=== PATIENT | female | born 1980 | race Caucasian/White ===

== ENCOUNTER 2016-06-20 01:54 | Emergency (ER) | payer BC ==
[2016-06-20 02:17] VITALS: RESP 18
[2016-06-20] MEDS ORDERED: SODIUM CHLORIDE 0.9% 500 ML IV STA (02:34)
[2016-06-20] MEDS ORDERED: ONDANSETRON 4 MG/2 ML VIAL IVP STA (02:38)
--- NOTE | 2016-06-20 02:38 | ED ---
Abdominal Pain HPI - General Chief Complaint: Abdominal Pain Stated Complaint: back/abd pain Time Seen by Provider: 06/20/16 02:20 Source: patient, family, RN notes reviewed Mode of arrival: ambulatory Limitations: no limitations - History of Present Illness Initial Comments: This patient is a 36-year-old woman who presents with complaint of bilateral flank pain going toward her abdomen. The patient states that this reminds her of previous kidney stone that she had. She states pain came on approximately 2 hours ago. She states that she had been trying sleep at the time. She describes the pain as aching, constant, severe. She is not aware of any worsening or relieving factors. She states that the pain is been accompanied by nausea but no other symptoms. MD Complaint: abdominal pain Onset/Timin -: hour(s) Location: L flank, R flank Radiation: LLQ, RLQ Migration to: no migration Severity: severe Quality: aching Consistency: constant Improves With: nothing Worsens With: nothing Associated Symptoms: nausea - Related Data Previous Rx's Medication Instructions Recorded Dicyclomine [Bentyl] 20 mg PO QID #15 tablet 06/20/16 Ondansetron Odt [Zofran ODT] 4 mg PO Q8HR PRN #10 tab 06/20/16 Allergies Allergy/AdvReac Type Severity Reaction Status Date / Time No Known Allergies Allergy Verified 06/20/16 02:17 Review of Systems ROS Statement: Those systems with pertinent positive or pertinent negative responses have been documented in the HPI. ROS Other: All systems not noted in ROS Statement are negative. Constitutional: Reports: chills. Denies: fever Respiratory: Denies: cough, dyspnea, wheezes Cardiovascular: Denies: chest pain, palpitations, edema Gastrointestinal: Reports: as per HPI, abdominal pain, nausea. Denies: vomiting , diarrhea, constipation, melena, hematochezia Genitourinary: Denies: dysuria, hematuria Musculoskeletal: Denies: back pain Skin: Denies: rash Neurological: Denies: headache, weakness Past Medical History Additional Past Medical History / Comment(s): ovarian cysts, UTI History of Any Multi-Drug Resistant Organisms: None Reported Past Surgical History: Appendectomy, Bariatric Surgery, Section, Tubal Ligation Additional Past Surgical History / Comment(s): lap band, uterine ablation Past Psychological History: No Psychological Hx Reported Smoking Status: Current every day smoker Past Alcohol Use History: Rare Past Drug Use History: None Reported General Exam Limitations: no limitations General appearance: alert, in no apparent distress Head exam: Present: atraumatic, normocephalic, normal inspection Eye exam: Present: normal appearance. Absent: scleral icterus, conjunctival injection ENT exam: Present: normal oropharynx Respiratory exam: Present: normal lung sounds bilaterally. Absent: respiratory distress, wheezes, rales, rhonchi, stridor Cardiovascular Exam: Present: regular rate, normal rhythm, normal heart sounds. Absent: systolic murmur, diastolic murmur, rubs, gallop GI/Abdominal exam: Present: soft, tenderness, normal bowel sounds. Absent: distended, rebound, rigid, mass, pulsatile mass, hernia Extremities exam: Present: normal inspection, normal capillary refill. Absent: pedal edema, calf tenderness Back exam: Present: normal inspection, CVA tenderness (R), CVA tenderness (L) Neurological exam: Present: alert Skin exam: Present: warm, dry, intact, normal color. Absent: rash Course Vital Signs 06/20/16 02:14 Temperature 97 F L Pulse Rate 99 Respiratory 18 Rate Blood Pressure 119/87 O2 Sat by Pulse 99 Oximetry Medical Decision Making - Lab Data Result diagrams: 06/20/16 02:49 06/20/16 02:49 Lab Results 06/20/16 06/20/16 Range/Units 02:49 02:49 WBC 11.9 H (3.8-10.6) k/uL RBC 4.84 (3.80-5.40) m/uL Hgb 15.0 (11.4-16.0) gm/dL Hct 44.1 (34.0-46.0) % MCV 91.3 (80.0-100.0) fL MCH 31.1 (25.0-35.0) pg MCHC 34.1 (31.0-37.0) g/dL RDW 12.4 (11.5-15.5) % Plt Count 276 (150-450) k/uL Neutrophils % 86 % Lymphocytes % 7 % Monocytes % 4 % Eosinophils % 2 % Basophils % 0 % Neutrophils # 10.2 H (1.3-7.7) k/uL Lymphocytes # 0.8 L (1.0-4.8) k/uL Monocytes # 0.5 (0-1.0) k/uL Eosinophils # 0.3 (0-0.7) k/uL Basophils # 0.0 (0-0.2) k/uL Sodium 143 (137-145) mmol/L Potassium 4.1 (3.5-5.1) mmol/L Chloride 106 (98-107) mmol/L Carbon Dioxide 27 (22-30) mmol/L Anion Gap 10 mmol/L BUN 8 (7-17) mg/dL Creatinine 0.70 (0.52-1.04) mg/dL Est GFR (MDRD) Af Amer >60 (>60 ml/min/1.73 sqM) Est GFR (MDRD) Non-Af >60 (>60 ml/min/1.73 sqM) Glucose 105 H (74-99) mg/dL Calcium 9.2 (8.4-10.2) mg/dL Total Bilirubin 0.5 (0.2-1.3) mg/dL AST 19 (14-36) U/L ALT 28 (9-52) U/L Alkaline Phosphatase 40 (38-126) U/L Total Protein 6.7 (6.3-8.2) g/dL Albumin 4.0 (3.5-5.0) g/dL Amylase 67 (30-110) U/L Lipase 120 (23-300) U/L Disposition Clinical Impression: Abdominal pain Disposition: HOME SELF-CARE Condition: Good Instructions: Abdominal Pain (ED) Prescriptions: Dicyclomine [Bentyl] 20 mg PO QID #15 tablet Ondansetron Odt [Zofran ODT] 4 mg PO Q8HR PRN #10 tab PRN Reason: Nausea Referrals: Kade Vicente MD [Primary Care Provider] - 1-2 days
[2016-06-20] MEDS: MORPHINE SULFATE 4 MG/ML SYRINGE IV STA ×2 (02:54→05:02)
[2016-06-20 03:05] LABS: Basophils % (A) 0 %; CH 31.4; CHCM 34.5; Eosinophils # (A) 0.3 k/uL (0-0.7); Eosinophils % (A) 2 %; HCT 44.1 % (34.0-46.0); HDW 2.64; Luc # (Auto) 0.06; Luc % (Auto) 1; Lymphocytes # (A) 0.8 k/uL (1.0-4.8); Lymphocytes % (A) 7 %; MCH 31.1 pg (25.0-35.0); MCHC 34.1 g/dL (31.0-37.0); MCV 91.3 fL (80.0-100.0); Mean Platelet Volume 6.6; Monocytes # (A) 0.5 k/uL (0-1.0); Monocytes % (A) 4 %; Neutrophils # (A) 10.2 k/uL (1.3-7.7); Neutrophils % (A) 86 %; RBC 4.84 m/uL (3.80-5.40); RDW 12.4 % (11.5-15.5); WBC 11.9 k/uL (3.8-10.6); WBC (Perox) 12.46
[2016-06-20 03:22] LABS: ALT 28 U/L (9-52); AST 19 U/L (14-36); Alkaline Phosphatase 40 U/L (38-126); Amylase 67 U/L (30-110); Anion Gap 10 mmol/L; Blood Urea Nitrogen 8 mg/dL (7-17); Calcium 9.2 mg/dL (8.4-10.2); Carbon Dioxide 27 mmol/L (22-30); Chloride 106 mmol/L (98-107); Glucose 105 mg/dL (74-99); Non-African American GFR(MDRD) >60 (>60 ml/min/1.73 sqM); Potassium 4.1 mmol/L (3.5-5.1); Sodium 143 mmol/L (137-145); Total Bilirubin 0.5 mg/dL (0.2-1.3); Total Protein 6.7 g/dL (6.3-8.2)
--- NOTE | 2016-06-20 03:49 | CT ---
EXAMINATION TYPE: CT abdomen pelvis wo con DATE OF EXAM: 06/20/2016 3:11 AM COMPARISON: 12/20/2015 HISTORY: Bilateral flank pain, Nausea, hx: appendectomy, lap band CT DLP: 226.70 mGycm Automated exposure control for dose reduction was used. TECHNIQUE: Helical acquisition of images was performed from the lung bases through the pelvis. FINDINGS: LUNG BASES: No significant abnormality is appreciated. LIVER/GB: No significant abnormality is appreciated. PANCREAS: No significant abnormality is seen. SPLEEN: No significant abnormality is seen. ADRENALS: No significant abnormality is seen. KIDNEYS: There is 3 mm nonobstructing stone in the upper pole area of left kidney. There is no hydron ephrosis bilaterally. RETROPERITONEAL ADENOPATHY: None visualized REPRODUCTIVE ORGANS: No significant abnormality is seen URINARY BLADDER: No significant abnormality is seen. PELVIC ADENOPATHY: None visualized. OSSEOUS STRUCTURES: No significant abnormality is seen. BOWEL: LAP-BAND surgery changes are noted in the stomach. The lap band port is noted in the left upp er abdomen subcutaneous area. The lap band appears in good position with oblique orientation. There is marked food and fluid disten tion of stomach. There is moderate fluid and gas distention of small bowel loops and large bowel loops with mild ileus or enteritis changes. The appendix is not well visualized. Appendix is probably surgically absent with surgical clips in pl andree. OTHER: There is suggestion of mild diffuse edema or anasarca of the abdomen and pelvic wall. IMPRESSION: 1. THERE IS FLUID AND AIR DISTENTION OF STOMACH SMALL AND LARGE BOWEL LOOPS WITH POSSIBLE GASTROENTER ITIS CHANGES. 2. LAP BAND PROCEDURE CHANGES ARE NOTED. THERE IS MARKED FLUID AND FOOD DISTENTION OF STOMACH.
[2016-06-20] MEDS ORDERED: MORPHINE SULFATE 4 MG/ML SYRINGE IV STA (04:52)
[2016-06-20 05:13] VITALS: BP 126/72; PULSE 78; TEMP 97.8
== END 2016-06-20 05:13 | disposition home or self-care (01) ==
LOC: EC 01:54
DX: R10.32 Left lower quadrant pain (principal); R10.31 Right lower quadrant pain; F17.200 Nicotine dependence, unspecified, uncomplicated; Z98.890 Other specified postprocedural states; Z98.84 Bariatric surgery status
CPT/HCPCS: 99284; 96374; 96375; 96361; 36415; 80053; 82150; 83690; 85025; 74176; J2270; J2405; 74020; 81001; 83605; 87077; 87086; 87186; 96365

== ENCOUNTER 2016-06-20 16:21 | Emergency (ER) | payer BC, OTHER ==
[2016-06-20 16:50] VITALS: TEMP 98
[2016-06-20] MEDS ORDERED: KETOROLAC 30 MG/ML 1 ML VIAL IVP STA (19:14)
[2016-06-20] MEDS ORDERED: PANTOPRAZOLE 40 MG/10 ML VIAL IVP STA (19:14)
[2016-06-20] MEDS ORDERED: SODIUM CHLORIDE 0.9% 1,000 ML IV STA (19:14)
[2016-06-20] MEDS ORDERED: METOCLOPRAMIDE 5 MG/ML 2 ML VIAL IVP STA (19:14)
--- NOTE | 2016-06-20 19:20 | ED ---
General Adult HPI - General Chief complaint: Abdominal Pain Stated complaint: BACK AND ABDOMINAL PAIN Time Seen by Provider: 06/20/16 18:45 Source: patient, family, RN notes reviewed, old records reviewed Mode of arrival: wheelchair Limitations: no limitations - History of Present Illness Initial comments: Chief complaint history of present illness a 36-year-old female who was here last night with a similar complaint of low back pain and abdominal discomfort. The patient had a CAT scan done last night without contrast for the most part did not show anything particular other than fluid and air distention of the stomach, small and large bowel loops with possible gastroenteritis changes. The patient has had a lap band and LAP-BAND procedure changes were noted. There is marked fluid in food distention of the stomach. Patient reports she's had dry heaves yesterday nausea today loose stool yesterday and today. - Related Data Previous Rx's Medication Instructions Recorded Dicyclomine [Bentyl] 20 mg PO QID #15 tablet 06/20/16 Hydrocodone/Acetaminophen [[place] 1 each PO Q6HR PRN #10 tab 06/20/16 5-325] Levofloxacin [Levaquin] 500 mg PO DAILY #6 tab 06/20/16 Ondansetron Odt [Zofran ODT] 4 mg PO Q8HR PRN #10 tab 06/20/16 Phenazopyridine [Pyridium] 200 mg PO TID #6 tablet 06/20/16 Allergies Allergy/AdvReac Type Severity Reaction Status Date / Time No Known Allergies Allergy Verified 06/20/16 18:48 Review of Systems ROS Statement: Those systems with pertinent positive or pertinent negative responses have been documented in the HPI. Review of systems patient's denying any visual acuity or headache no chest pain or shortness of breath. She has low back discomfort radiates around both sides the mid abdomen. Dry heaves loose stool. All systems were reviewed past medical problems kidney stones, ovarian cyst with frequent urinary tract infections. Patient surgeries appendectomy, bariatric surgery, , tubal ligation, uterine ablation. Family history no cancers patient does smoke strongly encouraged stop drink alcohol socially ROS Other: All systems not noted in ROS Statement are negative. Past Medical History Additional Past Medical History / Comment(s): ovarian cysts, UTI History of Any Multi-Drug Resistant Organisms: None Reported Past Surgical History: Appendectomy, Bariatric Surgery, Section, Tubal Ligation Additional Past Surgical History / Comment(s): lap band, uterine ablation Past Psychological History: No Psychological Hx Reported Smoking Status: Current every day smoker Past Alcohol Use History: Rare Past Drug Use History: None Reported General Exam - General Exam Comments Initial Comments: General: The patient is awake and alert, complaining of discomfort since 2 PM yesterday were started rather abruptly. Patient does have history kidney stones but no evidence of stones are noted on yesterday's CAT scan which was done without IV oral contrast. Vital signs show temperature 98.0 pulse 22 story rate 18 pulse ox 99% room air blood pressure 118/84 Eye: Pupils are equal, r , extra-ocular movements are intact; there is normal conjunctiva bilaterally. No signs of icterus. Ears, nose, mouth and throat: There are moist mucous membranes Neck: The neck is supple, Cardiovascular: There is a regular rate and rhythm. No murmur, rub or gallop is appreciated. Respiratory: Lungs are clear to auscultation, respirations are non-labored, breath sounds are equal. No wheezes, stridor, rales, or rhonchi. Gastrointestinal: Soft, non-distended, non-tender abdomen without masses or organomegaly noted. Mid abdominal discomfort across the mid abdomen .There is no rebound or guarding present. Complains of bilateral CVA tenderness. Bowel sounds are unremarkable. Back: Mid low back pain radiates around both sides. Musculoskeletal: Normal ROM, no tenderness, Neurological: CN II-XII intact, There are no obvious motor or sensory deficits. Coordination appears grossly intact. Speech is normal. Skin: Skin is warm and dry and no rashes or lesions are noted. Limitations: no limitations Course Vital Signs 06/20/16 16:47 Temperature 98.0 F Pulse Rate 92 Respiratory 18 Rate Blood Pressure 118/84 O2 Sat by Pulse 99 Oximetry Medical Decision Making - Medical Decision Making Medical decision making patient's white count 6.2 hemoglobin 13.8 hematocrit 41 , potassium 3.9 BUN 6 creatinine 0.57 GFR greater than 60. Glucose 97. Nitrite positive. Amylase lipase normal. 23 reds in the urine, 2 whites. The patient does not have any menstrual cycles because of uterine ablation. X-ray of the abdomen was done and reviewed by radiologist his impression is there is no sign of intestinal obstruction or pneumoperitoneum. Fecal pattern is normal. Bariatric surgery is noted. There are clips from tubal ligation. Lung bases are clear. There are no pathologic calcifications over the kidneys. Fecal pattern is normal. Impression nonacute abdomen. No change. As read by Dr. Ko Patient received her first dose of Levaquin IV in the emergency room. She has not have fever white count or chills. She'll be sent home on Levaquin 500 daily for the next 6 days for total seven-day treatment. Advised to follow-up with family physician and get her urine rechecked several days after she finishes antibiotics to make sure infections gone. She did return emergency room with any difficulty. In the meanwhile the patient be placed on Pyridium which will turn her urine orange. And a few pain pills. - Lab Data Result diagrams: 06/20/16 19:03 06/20/16 19:03 Lab Results 06/20/16 06/20/16 06/20/16 Range/Units 19:03 19:03 19:03 WBC 6.2 (3.8-10.6) k/uL RBC 4.49 (3.80-5.40) m/uL Hgb 13.8 (11.4-16.0) gm/dL Hct 41.0 (34.0-46.0) % MCV 91.4 (80.0-100.0) fL MCH 30.7 (25.0-35.0) pg MCHC 33.6 (31.0-37.0) g/dL RDW 12.4 (11.5-15.5) % Plt Count 250 (150-450) k/uL Neutrophils % 85 % Lymphocytes % 9 % Monocytes % 4 % Eosinophils % 2 % Basophils % 0 % Neutrophils # 5.2 (1.3-7.7) k/uL Lymphocytes # 0.6 L (1.0-4.8) k/uL Monocytes # 0.2 (0-1.0) k/uL Eosinophils # 0.1 (0-0.7) k/uL Basophils # 0.0 (0-0.2) k/uL Sodium 136 L (137-145) mmol/L Potassium 3.9 (3.5-5.1) mmol/L Chloride 105 (98-107) mmol/L Carbon Dioxide 22 (22-30) mmol/L Anion Gap 9 mmol/L BUN 6 L (7-17) mg/dL Creatinine 0.57 (0.52-1.04) mg/dL Est GFR (MDRD) Af Amer >60 (>60 ml/min/1.73 sqM) Est GFR (MDRD) Non-Af >60 (>60 ml/min/1.73 sqM) Glucose 97 (74-99) mg/dL Plasma Lactic Acid Charlie (0.7-2.0) mmol/L Calcium 8.9 (8.4-10.2) mg/dL Total Bilirubin 0.5 (0.2-1.3) mg/dL AST 16 (14-36) U/L ALT 28 (9-52) U/L Alkaline Phosphatase 38 (38-126) U/L Total Protein 6.3 (6.3-8.2) g/dL Albumin 3.7 (3.5-5.0) g/dL Amylase 63 (30-110) U/L Lipase 130 (23-300) U/L Urine Color Yellow Urine Appearance Turbid H (Clear) Urine pH 7.5 (5.0-8.0) Ur Specific Ira 1.021 (1.001-1.035) Urine Protein 1+ H (Negative) Urine Glucose (UA) Negative (Negative) Urine Ketones Negative (Negative) Urine Blood Negative (Negative) Urine Nitrate Positive H (Negative) Urine Bilirubin Negative (Negative) Urine Urobilinogen 2.0 (<2.0) mg/dL Ur Leukocyte Esterase Large H (Negative) Urine RBC 23 H (0-5) /hpf Urine WBC 92 H (0-5) /hpf Urine WBC Clumps Few H (None) /hpf Ur Squamous Epith Cells 115 H (0-4) /hpf Urine Bacteria Many H (None) /hpf Urine Mucus Few H (None) /hpf Urine Yeast (Budding) Occasional H (None) /hpf 06/20/16 Range/Units 19:30 WBC (3.8-10.6) k/uL RBC (3.80-5.40) m/uL Hgb (11.4-16.0) gm/dL Hct (34.0-46.0) % MCV (80.0-100.0) fL MCH (25.0-35.0) pg MCHC (31.0-37.0) g/dL RDW (11.5-15.5) % Plt Count (150-450) k/uL Neutrophils % % Lymphocytes % % Monocytes % % Eosinophils % % Basophils % % Neutrophils # (1.3-7.7) k/uL Lymphocytes # (1.0-4.8) k/uL Monocytes # (0-1.0) k/uL Eosinophils # (0-0.7) k/uL Basophils # (0-0.2) k/uL Sodium (137-145) mmol/L Potassium (3.5-5.1) mmol/L Chloride (98-107) mmol/L Carbon Dioxide (22-30) mmol/L Anion Gap mmol/L BUN (7-17) mg/dL Creatinine (0.52-1.04) mg/dL Est GFR (MDRD) Af Amer (>60 ml/min/1.73 sqM) Est GFR (MDRD) Non-Af (>60 ml/min/1.73 sqM) Glucose (74-99) mg/dL Plasma Lactic Acid Charlie 0.9 (0.7-2.0) mmol/L Calcium (8.4-10.2) mg/dL Total Bilirubin (0.2-1.3) mg/dL AST (14-36) U/L ALT (9-52) U/L Alkaline Phosphatase (38-126) U/L Total Protein (6.3-8.2) g/dL Albumin (3.5-5.0) g/dL Amylase (30-110) U/L Lipase (23-300) U/L Urine Color Urine Appearance (Clear) Urine pH (5.0-8.0) Ur Specific Ira (1.001-1.035) Urine Protein (Negative) Urine Glucose (UA) (Negative) Urine Ketones (Negative) Urine Blood (Negative) Urine Nitrate (Negative) Urine Bilirubin (Negative) Urine Urobilinogen (<2.0) mg/dL Ur Leukocyte Esterase (Negative) Urine RBC (0-5) /hpf Urine WBC (0-5) /hpf Urine WBC Clumps (None) /hpf Ur Squamous Epith Cells (0-4) /hpf Urine Bacteria (None) /hpf Urine Mucus (None) /hpf Urine Yeast (Budding) (None) /hpf Disposition Clinical Impression: Urinary tract infection Disposition: HOME SELF-CARE Condition: Fair Instructions: Urinary Tract Infection in Women (ED) Additional Instructions: Increase fluids. Take pain medication as directed Pyridium will turn the urine orange. Get urine rechecked several days after he finished antibiotics. Follow -up family physician return emergency room as needed Prescriptions: Hydrocodone/Acetaminophen [[place] 5-325] 1 each PO Q6HR PRN #10 tab PRN Reason: Pain Levofloxacin [Levaquin] 500 mg PO DAILY #6 tab Phenazopyridine [Pyridium] 200 mg PO TID #6 tablet Time of Disposition: 21:15
[2016-06-20 19:34] LABS: Basophils % (A) 0 %; CH 31.4; CHCM 34.5; Eosinophils # (A) 0.1 k/uL (0-0.7); Eosinophils % (A) 2 %; HDW 2.67; HGB 13.8 gm/dL (11.4-16.0); Luc # (Auto) 0.03; Luc % (Auto) 1; Lymphocytes # (A) 0.6 k/uL (1.0-4.8); Lymphocytes % (A) 9 %; MCH 30.7 pg (25.0-35.0); MCHC 33.6 g/dL (31.0-37.0); MCV 91.4 fL (80.0-100.0); Mean Platelet Volume 6.7; Monocytes # (A) 0.2 k/uL (0-1.0); Monocytes % (A) 4 %; Neutrophils # (A) 5.2 k/uL (1.3-7.7); Neutrophils % (A) 85 %; RBC 4.49 m/uL (3.80-5.40); RDW 12.4 % (11.5-15.5); WBC 6.2 k/uL (3.8-10.6); WBC (Perox) 6.45
[2016-06-20 19:38] LABS: Appearance,Urine Turbid (Clear); Bacteria,Urine Many /hpf; Bilirubin,Urine Negative (Negative); Glucose,Urine (UA) Negative (Negative); Ketones,Urine Negative (Negative); Leukocyte Esterase,Urine Large (Negative); Mucus,Urine Few /hpf; Nitrite,Urine Positive (Negative); PH, Urine 7.5 (5.0-8.0); Particle Count 159104; Protein,Urine 1+ (Negative); RBC,Urine 23 /hpf (0-5); Specific Gravity,Urine 1.021 (1.001-1.035); Squamous Epithelial Cell,Urine 115 /hpf (0-4); UA Billing (MACRO vs. MICRO) MICRO; WBC,Urine 92 /hpf (0-5)
[2016-06-20 19:42] LABS: ALT 28 U/L (9-52); AST 16 U/L (14-36); Alkaline Phosphatase 38 U/L (38-126); Amylase 63 U/L (30-110); Anion Gap 9 mmol/L; Blood Urea Nitrogen 6 mg/dL (7-17); Calcium 8.9 mg/dL (8.4-10.2); Carbon Dioxide 22 mmol/L (22-30); Chloride 105 mmol/L (98-107); Glucose 97 mg/dL (74-99); Non-African American GFR(MDRD) >60 (>60 ml/min/1.73 sqM); Potassium 3.9 mmol/L (3.5-5.1); Sodium 136 mmol/L (137-145); Total Bilirubin 0.5 mg/dL (0.2-1.3); Total Protein 6.3 g/dL (6.3-8.2)
--- NOTE | 2016-06-20 19:55 | XR ---
EXAMINATION TYPE: XR abdomen 2V DATE OF EXAM: 06/20/2016 7:41 PM COMPARISON: 02/18/2016 HISTORY: Abdominal pain TECHNIQUE: 3 views FINDINGS: There is no sign of intestinal obstruction or pneumoperitoneum. Fecal pattern is normal. Ba riatric surgery is noted. There are clips from tubal ligation. Lung bases are clear. There are no pat hologic calcifications over the kidneys. Fecal pattern is normal. IMPRESSION: Nonacute abdomen. No change.
[2016-06-20] MEDS ORDERED: LEVOFLOXACIN 500MG-D5W PMX 500 MG in DEXTROSE/WATER 1 100ML.BAG IVPB STA (20:17)
[2016-06-20 22:29] VITALS: BP 120/72; PULSE 70; RESP 12
== END 2016-06-20 22:28 | disposition home or self-care (01) ==
LOC: EC 16:21
DX: N39.0 Urinary tract infection, site not specified (principal); Z98.84 Bariatric surgery status; F17.200 Nicotine dependence, unspecified, uncomplicated; Z87.442 Personal history of urinary calculi; Z87.440 Personal history of urinary (tract) infections; R11.0 Nausea; B96.20 Unspecified Escherichia coli [E. coli] as the cause of diseases classified elsewhere
CPT/HCPCS: 36415; 80053; 82150; 83605; 83690; 85025; 81001; 87086; 87077; 87186; 74020; 96365; 96375 ×3; 96361 ×2; 99284; J2765; J1956; J1885; C9113

== ENCOUNTER 2019-05-07 08:20 | Emergency (ER) | payer BC, OTHER ==
[2019-05-07 08:30] VITALS: BP 122/87; PULSE 98; RESP 18; TEMP 97.5
[2019-05-07] MEDS ORDERED: KETOROLAC 60 MG/2 ML VIAL IM STA (09:12)
[2019-05-07] MEDS ORDERED: traMADol 50 MG STARTER PACK 3 TAB BTL PO STA (09:12)
--- NOTE | 2019-05-07 09:18 | ED ---
Upper Extremity HPI - General Chief Complaint: Extremity Injury, Upper Stated Complaint: Pain in both hands Time Seen by Provider: 05/07/19 08:32 Source: patient, RN notes reviewed, old records reviewed Mode of arrival: ambulatory Limitations: no limitations - History of Present Illness Initial Comments: Patient is a 32 year old female presents emergency department today which included bilateral hand pain and swelling. 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 She complains of sharp shooting pains in her hands and swelling. She's been trying to keep up and elevated. Patient states that she's had no fevers or chills or other complaints. She reports that she has had most of the pain in her eminence and wrist. Patient states that she's had ibuprofen and Tylenol with no significant relief of her pain. - Related Data Previous Rx's Medication Instructions Recorded Dicyclomine [Bentyl] 20 mg PO QID #15 tablet 06/20/16 Hydrocodone/Acetaminophen [[place] 1 each PO Q6HR PRN #10 tab 06/20/16 5-325] Levofloxacin [Levaquin] 500 mg PO DAILY #6 tab 06/20/16 Ondansetron Odt [Zofran ODT] 4 mg PO Q8HR PRN #10 tab 06/20/16 Phenazopyridine [Pyridium] 200 mg PO TID #6 tablet 06/20/16 Ibuprofen 600 mg PO TID #20 tablet 05/07/19 Allergies Allergy/AdvReac Type Severity Reaction Status Date / Time No Known Allergies Allergy Verified 05/07/19 08:27 Review of Systems ROS Statement: Those systems with pertinent positive or pertinent negative responses have been documented in the HPI. ROS Other: All systems not noted in ROS Statement are negative. Past Medical History Past Medical History: No Reported History Additional Past Medical History / Comment(s): ovarian cysts, UTI History of Any Multi-Drug Resistant Organisms: None Reported Past Surgical History: Appendectomy, Bariatric Surgery, Section, Tubal Ligation Additional Past Surgical History / Comment(s): lap band, uterine ablation Past Psychological History: No Psychological Hx Reported Smoking Status: Current every day smoker Past Alcohol Use History: Occasional Past Drug Use History: None Reported General Exam - General Exam Comments Initial Comments: 38-year-old female. Alert and oriented 3. Patient appears in her mild to moderate discomfort. Limitations: no limitations General appearance: alert, in no apparent distress Head exam: Present: atraumatic, normocephalic, normal inspection Eye exam: Present: normal appearance, PERRL, EOMI. Absent: scleral icterus, conjunctival injection, periorbital swelling ENT exam: Present: normal exam, mucous membranes moist Neck exam: Present: normal inspection. Absent: tenderness, meningismus, lymphadenopathy Respiratory exam: Present: normal lung sounds bilaterally. Absent: respiratory distress, wheezes, rales, rhonchi, stridor Cardiovascular Exam: Present: regular rate, normal rhythm, normal heart sounds. Absent: systolic murmur, diastolic murmur, rubs, gallop, clicks GI/Abdominal exam: Present: soft, normal bowel sounds. Absent: distended, tenderness, guarding, rebound, rigid Extremities exam: Present: normal inspection, full ROM, normal capillary refill, other (Bilateral upper extremity swelling and pain.). Absent: tenderness, pedal edema, joint swelling, calf tenderness Back exam: Present: normal inspection Neurological exam: Present: alert, oriented X3, CN II-XII intact Psychiatric exam: Present: normal affect, normal mood Skin exam: Present: warm, dry, intact, normal color. Absent: rash Course Vital Signs 05/07/19 08:28 Temperature 97.5 F L Pulse Rate 98 Respiratory 18 Rate Blood Pressure 122/87 O2 Sat by Pulse 99 Oximetry Medical Decision Making - Medical Decision Making 38-year-old female presents emergency department today for evaluation for chief complaint of viral hand pain. Patient reports she's been doing a lot of work on [email or web address]. Patient has some swelling, and tenderness over the thenar eminence. Positive Stacy's test. Consistent with de Quervain's tenosynovitis. I discussed Patient can be written for a thumb spica splint and advised to have close follow-up with orthopedic hand specialist. Discussed return parameters. All questions were answered. Disposition Clinical Impression: De Quervain's disease (tenosynovitis), Bilateral hand swelling Disposition: HOME SELF-CARE Condition: Good Instructions (If sedation given, give patient instructions): De Quervain Disease (ED), Tenosynovitis (ED) Additional Instructions: Patient advised to use anti-inflammatory medicines and ice the hands and wrists. Patient can use the wrist splints as directed. Close follow-up with or thopedic hand specialist. Prescriptions: Ibuprofen 600 mg PO TID #20 tablet Is patient prescribed a controlled substance at d/c from ED?: No Referrals: None,Stated [Primary Care Provider] - 1-2 days Cleve Barillas DO [Medical Doctor] - 1-2 days Time of Disposition: 09:17
== END 2019-05-07 09:48 | disposition home or self-care (01) ==
LOC: EC 08:20
DX: M65.4 Radial styloid tenosynovitis [de Quervain] (principal); F17.200 Nicotine dependence, unspecified, uncomplicated; X50.9XXA Other and unspecified overexertion or strenuous movements or postures, initial encounter; Y92.69 Other specified industrial and construction area as the place of occurrence of the external cause
CPT/HCPCS: 99283; 96372; J1885

== ENCOUNTER → 2019-08-08 | Outpatient (CLI) | payer BC ==
[2019-08-08 15:10] VITALS: BP 126/84; PULSE 120; RESP 16; TEMP 97.3; BMI 31.2
--- NOTE | 2019-08-09 12:37 | P.HPBAR ---
Bariatric H&P - History & Physicial H&P Date: 08/08/19 History & Physicial: Visit/CC: band adj Patient initial contact: Initial weight: Initial weight in pounds: Height: 5 ft Initial BMI: Last weight: Current weight: 72.575 kg Current weight in pounds: 160.00 Current BMI: 31.2 Roberts body weight (based on NIH guidelines): 45.359 kg Excess body weight loss: The patient is a 39 year-old F who presents for Bariatric Assessment. Patient resents today for LAP-BAND adjustment. She is currently requesting a fill. Past Medical History Past Medical History: No Reported History Additional Past Medical History / Comment(s): ovarian cysts, UTI History of Any Multi-Drug Resistant Organisms: None Reported Past Surgical History: Appendectomy, Bariatric Surgery, Section, Tubal Ligation Additional Past Surgical History / Comment(s): lap band, uterine ablation Smoking Status: Current every day smoker Surgical - Exam Vital Signs Temp Pulse Resp BP 97.3 F L 120 H 16 126/84 08/08/19 15:05 08/08/19 15:05 08/08/19 15:05 08/08/19 15:05 - General well developed, well nourished, no distress - Abdomen Abdomen: soft, non tender Bariatric Assessment & Plan Plan: Patient LAP-BAND was just appeared she had 1 mL added to the band. She currently has 2 mL in her band. She'll follow-up in 4 weeks Bariatric Checklist Checklist: Plan: Checklist: EGD: 1. Hiatal hernia: 2. H. Pylori: HgbA1c: Vitamin D: Smoking: Current every day smoker Primary care physician referral: Psychiatry clearance: Cardiology clearance: Sleep study: Diet journal: VTE risk score: VTE risk level: Rehab needs at discharge:
== END | disposition home or self-care (01) ==
LOC: BARWHC3 13:26
PROVIDERS: ATTEND Surgery
DX: Z46.51 Encounter for fitting and adjustment of gastric lap band (principal); F17.200 Nicotine dependence, unspecified, uncomplicated
CPT/HCPCS: 99212

== ENCOUNTER → 2020-01-16 | Outpatient (CLI) | payer BC, OTHER ==
[2020-01-16 13:31] VITALS: BP 122/88; PULSE 111; RESP 18; TEMP 98.2
--- NOTE | 2020-01-16 13:54 | P.HPBAR ---
Bariatric H&P - History & Physicial H&P Date: 01/16/20 History & Physicial: Visit/CC: possible band leak Patient initial contact: Initial weight: Initial weight in pounds: Height: 5 ft Initial BMI: Last weight: Current weight: 77.61 kg Current weight in pounds: Current BMI: [place] body weight (based on NIH guidelines): 45.359 kg Excess body weight loss: The patient is a 39 year-old F who presents for Bariatric Assessment. Patient presents today for lab band follow up. She has complaints of hunger. She feels that her LAP-BAND port is leaking. He has lost restriction. Past Medical History Past Medical History: No Reported History Additional Past Medical History / Comment(s): ovarian cysts, UTI History of Any Multi-Drug Resistant Organisms: None Reported Past Surgical History: Appendectomy, Bariatric Surgery, Section, Tubal Ligation Additional Past Surgical History / Comment(s): lap band, uterine ablation Smoking Status: Never smoker Surgical - Exam Vital Signs Temp Pulse Resp BP Pulse Ox 98.2 F 111 H 18 122/88 98 01/16/20 13:27 01/16/20 13:27 01/16/20 13:27 01/16/20 13:27 01/16/20 13:27 - General well developed, well nourished, no distress - Eyes PERRL - ENT normal pinna - Neck no masses - Respiratory normal expansion - Cardiovascular Rhythm: regular - Abdomen Abdomen: soft, non tender Bariatric Assessment & Plan Plan: Patient's lap band port was accessed. She has loss of proximal or afferent fill volume. The patient will be scheduled for LAP-BAND port replacement. Bariatric Checklist Checklist: Plan: Checklist: EGD: 1. Hiatal hernia: 2. H. Pylori: HgbA1c: Vitamin D: Smoking: Current every day smoker Primary care physician referral: Psychiatry clearance: Cardiology clearance: Sleep study: Diet journal: VTE risk score: VTE risk level: Rehab needs at discharge:
== END | disposition home or self-care (01) ==
LOC: BARWHC3 13:05
PROVIDERS: ATTEND Surgery
DX: Z46.51 Encounter for fitting and adjustment of gastric lap band (principal); F17.200 Nicotine dependence, unspecified, uncomplicated; Z98.84 Bariatric surgery status; Z98.51 Tubal ligation status; Z90.49 Acquired absence of other specified parts of digestive tract
CPT/HCPCS: 99212

== ENCOUNTER → 2020-01-16 | Outpatient (CLI) | payer BC, OTHER | END | disposition home or self-care (01) | LOC: LABPAT 13:40 | PROVIDERS: ATTEND Surgery | DX: Z53.9 Procedure and treatment not carried out, unspecified reason (principal) ==

== ENCOUNTER → 2020-01-18 | Outpatient (CLI) | payer BC, OTHER ==
[2020-01-18 12:39] LABS: Basophils # (A) 0.1 k/uL (0-0.2); Basophils % (A) 1 %; Eosinophils # (A) 0.3 k/uL (0-0.7); Eosinophils % (A) 4 %; HCT 43.1 % (34.0-46.0); HGB 14.2 gm/dL (11.4-16.0); Lymphocytes # (A) 1.9 k/uL (1.0-4.8); Lymphocytes % (A) 27 %; MCH 29.2 pg (25.0-35.0); MCHC 32.9 g/dL (31.0-37.0); MCV 88.7 fL (80.0-100.0); Mean Platelet Volume 6.8; Monocytes # (A) 0.4 k/uL (0-1.0); Monocytes % (A) 6 %; Neutrophils # (A) 4.3 k/uL (1.3-7.7); Neutrophils % (A) 60 %; Platelet Count 335 k/uL (150-450); RBC 4.85 m/uL (3.80-5.40); RDW 12.7 % (11.5-15.5); WBC 7.1 k/uL (3.8-10.6)
[2020-01-18 12:46] LABS: ALT 16 U/L (4-34); AST 22 U/L (14-36); African American GFR (CKD) >90 (>60 ml/min/1.73 sqM); Albumin 4.2 g/dL (3.5-5.0); Alkaline Phosphatase 54 U/L (38-126); Anion Gap 8 mmol/L; Blood Urea Nitrogen 8 mg/dL (7-17); Calcium 9.7 mg/dL (8.4-10.2); Carbon Dioxide 25 mmol/L (22-30); Chloride 105 mmol/L (98-107); Glucose 93 mg/dL (74-99); Non-African American GFR(CKD) >90 (>60 ml/min/1.73 sqM); Sodium 138 mmol/L (137-145); Total Bilirubin 0.5 mg/dL (0.2-1.3); Total Protein 6.8 g/dL (6.3-8.2)
== END | disposition home or self-care (01) ==
LOC: LABPAT 11:30
PROVIDERS: ATTEND Surgery
DX: Z01.818 Encounter for other preprocedural examination (principal)
CPT/HCPCS: 36415; 80053; 85025; 93005

== ENCOUNTER 2020-01-25 06:19 | Day surgery (SDC) | payer BC, OTHER ==
[2020-01-23 09:48] VITALS: BMI 33.2
[~2020-01-25 06:19] MED LIST: DEXAMETHASONE SOD PHOSPHATE 10 MG/ML 1 ML VIAL IV ONE; HYDROmorphone 0.5 MG/0.5 ML SYRINGE IVP PRN; LACTATED RINGERS 1,000 ML IV SCH; LIDOCAINE 1% (10MG/ML) FOR IV START INTRADERMA PRN; ONDANSETRON 4 MG/2 ML VIAL IVP ONE
[2020-01-25] MEDS ORDERED: ONDANSETRON 4 MG/2 ML VIAL ONE (06:57)
[2020-01-25] MEDS ORDERED: MIDAZOLAM 2 MG/2 ML VIAL ONE (07:40)
[2020-01-25] MEDS ORDERED: fentaNYL (PF) 50 MCG/ML 2 ML AMP ONE (07:40)
[2020-01-25] MEDS ORDERED: GLYCOPYRROLATE 0.2 MG/ML 2 ML VIAL ONE (07:40)
[2020-01-25] MEDS ORDERED: LIDOCAINE 1% INJ 10MG/ML (20 ML MDV) ONE (07:40)
[2020-01-25] MEDS ORDERED: NEOSTIGMINE 1 MG/ML 10 ML VIAL ONE (07:40)
[2020-01-25] MEDS ORDERED: PROPOFOL 10 MG/ML 20 ML VIAL IV ONE (07:40)
[2020-01-25] MEDS ORDERED: HEPARIN SODIUM,PORCINE 5,000 UNIT/ML 1 ML VIAL ONE (07:40)
[2020-01-25] MEDS ORDERED: HYDROmorphone (PF) 1 MG/ML ONE (07:40)
[2020-01-25] MEDS ORDERED: KETOROLAC 30 MG/ML 1 ML VIAL ONE (07:40)
[2020-01-25] MEDS ORDERED: SUCCINYLCHOLINE CHLORIDE 100 MG/5 ML SYR IV ONE (07:40)
[2020-01-25] MEDS ORDERED: ROCURONIUM BROMIDE 10 MG/ML 5 ML VIAL IV ONE (07:40)
--- NOTE | 2020-01-25 07:48 | P.GSHP ---
History of Present Illness H&P Date: 01/25/20 Chief Complaint: LAP-BAND port malfunction This is a 39-year-old female who presents today for laparoscopic replacement of LAP-BAND port. Patient has a leak at her LAP-BAND port. Past Medical History Past Medical History: No Reported History Additional Past Medical History / Comment(s): ovarian cysts, UTI History of Any Multi-Drug Resistant Organisms: None Reported Past Surgical History: Appendectomy, Bariatric Surgery, Section, Tubal Ligation Additional Past Surgical History / Comment(s): lap band, uterine ablation Past Anesthesia/Blood Transfusion Reactions: No Reported Reaction Smoking Status: Never smoker - Past Family History Sister(s) Family Medical History: Deep Vein Thrombosis (DVT) Medications and Allergies Home Medications Medication Instructions Recorded Confirmed Type No Known Home Medications 01/16/20 01/25/20 History Allergies Allergy/AdvReac Type Severity Reaction Status Date / Time No Known Allergies Allergy Verified 01/25/20 07:13 Surgical - Exam Vital Signs Temp Pulse Resp BP Pulse Ox 98.3 F 84 16 131/79 98 01/25/20 06:54 01/25/20 06:54 01/25/20 06:54 01/25/20 06:54 01/25/20 06:54 - General well developed, well nourished, no distress - Eyes PERRL - ENT normal pinna - Neck no masses - Respiratory normal expansion - Cardiovascular Rhythm: regular - Abdomen Abdomen: soft, non tender Assessment and Plan Assessment: LAP-BAND port malfunction. Patient will undergo laparoscopic placement of LAP- BAND port
[2020-01-25] MEDS ORDERED: LIDOCAINE 1%-EPI 1:100,000 20 ML VIAL SQ ONE (08:00)
--- NOTE | 2020-01-25 08:31 | P.OP ---
Date of Procedure: 01/25/20 Preoperative Diagnosis: LAP-BAND port malfunction Postoperative Diagnosis: LAP-BAND port malfunction Procedure(s) Performed: Laparoscopic removal and replacement of LAP-BAND port Anesthesia: VU Surgeon: Elijah Goodwin Estimated Blood Loss (ml): 5 Pathology: none sent Condition: stable Disposition: PACU Description of Procedure: The patient's placed on the operative table in the supine position. He received doses. Her abdomen was prepped and draped usual fashion. The skin was incised LAP-BAND port the left cautery and sharp dissection LAP-BAND port was dissected free. There was erosion of the PEG tube. The LAP-BAND port cavity was then cut. Then using a 5 ohmmeter operative trocar under direct vision the pleural cavity entered. The abdomen was insufflated after adequate insufflation a 10 mm trochars placed in the right upper quadrant. The LAP-BAND cut to then brought through the tumor trocar site. The new LAP-BAND port was then cut to the PEG tube and then the LAP-BAND port was secured to the fascia using 0 Nurolon suture. The LAP-BAND port was then flushed with 3 mL of saline. The skin was closed interrupted 3-0 Monocryl suture. Dermabond was applied. Patient top she will was sent to recovery in stable condition.
[2020-01-25 08:56] VITALS: TEMP 98
[2020-01-25] MEDS ORDERED: LACTATED RINGERS 1,000 ML IV ONE (09:13)
[2020-01-25] MEDS ORDERED: HYDROcodone/APAP 5-325MG 1 EACH TAB PO STA (09:15)
[2020-01-25] MEDS ORDERED: HYDROcodone/APAP 5-325MG 1 EACH TAB ONE (09:35)
[2020-01-25 10:46] VITALS: BP 121/84; PULSE 79; RESP 18
== END 2020-01-25 10:50 | disposition home or self-care (01) ==
LOC: OR 06:19
PROVIDERS: ATTEND Surgery
DX: K95.09 Other complications of gastric band procedure (principal); Z98.84 Bariatric surgery status; Z87.440 Personal history of urinary (tract) infections; Z90.49 Acquired absence of other specified parts of digestive tract; Z98.891 History of uterine scar from previous surgery; Z98.51 Tubal ligation status; Z82.49 Family history of ischemic heart disease and other diseases of the circulatory system
CPT/HCPCS: 81025; 43659; C1751; J2250; J1644; J1100; J2710; J0690; J2405; J2001; J3010; J1885; J1170; J0330; J2704

== ENCOUNTER → 2020-01-30 | Outpatient (CLI) | payer BC, OTHER ==
[2020-01-30 14:01] VITALS: BP 128/81; PULSE 116; RESP 18; TEMP 98.3; BMI 32.4
--- NOTE | 2020-01-30 14:07 | P.HPBAR ---
Bariatric H&P - History & Physicial H&P Date: 01/30/20 History & Physicial: Visit/CC: folllow up Patient initial contact: Initial weight: Initial weight in pounds: Height: 5 ft Initial BMI: Last weight: Current weight: 75.296 kg Current weight in pounds: 166.00 Current BMI: 32.4 [place] body weight (based on NIH guidelines): 45.359 kg Excess body weight loss: The patient is a 39 year-old F who presents for Bariatric Assessment. Patient presents today for band follow up. She had her port replaced last week. Past Medical History Past Medical History: No Reported History Additional Past Medical History / Comment(s): ovarian cysts, UTI History of Any Multi-Drug Resistant Organisms: None Reported Past Surgical History: Appendectomy, Bariatric Surgery, Section, Tubal Ligation Additional Past Surgical History / Comment(s): lap band, uterine ablation Past Psychological History: No Psychological Hx Reported Smoking Status: Never smoker Past Alcohol Use History: Occasional Past Drug Use History: None Reported Surgical - Exam Vital Signs Temp Pulse Resp BP 98.3 F 116 H 18 128/81 01/30/20 13:56 01/30/20 13:56 01/30/20 13:56 01/30/20 13:56 - General well developed, well nourished, no distress - Eyes PERRL - ENT normal pinna - Neck no masses - Respiratory normal expansion - Abdomen Abdomen: soft, non tender Bariatric Assessment & Plan Plan: Status post LAP-BAND port placement. Patient will follow-up next week for adjustment of her LAP-BAND. Bariatric Checklist Checklist: Plan: Checklist: EGD: 1. Hiatal hernia: 2. H. Pylori: HgbA1c: Vitamin D: Smoking: Current every day smoker Primary care physician referral: none Psychiatry clearance: Cardiology clearance: Sleep study: Diet journal: VTE risk score: VTE risk level: Rehab needs at discharge:
== END | disposition home or self-care (01) ==
LOC: BARWHC3 13:48
PROVIDERS: ATTEND Surgery
DX: Z46.51 Encounter for fitting and adjustment of gastric lap band (principal); F17.200 Nicotine dependence, unspecified, uncomplicated; Z98.84 Bariatric surgery status; Z98.51 Tubal ligation status; Z90.49 Acquired absence of other specified parts of digestive tract
CPT/HCPCS: 99211

== ENCOUNTER 2022-03-30 22:29 | Emergency (ER) | payer BC, OTHER ==
[2022-03-30 23:20] LABS: Appearance,Urine Cloudy (Clear); Bacteria,Urine Rare /hpf; Bilirubin,Urine Negative (Negative); Blood,Urine Negative (Negative); Color,Urine Light Yellow; Glucose,Urine (UA) Negative (Negative); Ketones,Urine Negative (Negative); Leukocyte Esterase,Urine Large (Negative); Mucus,Urine Rare /hpf; Nitrite,Urine Negative (Negative); Protein,Urine Trace (Negative); RBC,Urine 3 /hpf (0-5); Specific Gravity,Urine 1.014 (1.001-1.035); Squamous Epithelial Cell,Urine 6 /hpf (0-4); WBC,Urine 58 /hpf (0-5)
[2022-03-31] MEDS ORDERED: HYDROcodone/APAP 5-325MG 1 EACH TAB PO STA (00:09)
[2022-03-31] MEDS ORDERED: CEPHALEXIN 500 MG CAP PO STA (00:09)
--- NOTE | 2022-03-31 00:12 | ED ---
General Adult HPI - General Chief complaint: Urogenital Stated complaint: kidney issues Time Seen by Provider: 03/30/22 23:58 Source: patient, RN notes reviewed Mode of arrival: ambulatory Limitations: no limitations - History of Present Illness Initial comments: 41-year-old female presents to the emergency Department with complaints of urinary symptoms 2 weeks. Patient complains of low back pain that is now accompanied with urinary frequency and burning discomfort. States she thought perhaps her discomfort was related to musculoskeletal complaint and Motrin with no significant improvement. States she has been attempting to increase fluids. Denies fever, chills, abdominal pain, nausea, vomiting, diarrhea, or hematuria. - Related Data Previous Rx's Medication Instructions Recorded Docusate [Colace] 100 mg PO BID #20 capsule 01/25/20 HYDROcodone/APAP 5-325MG [[place] 1 tab PO Q6HR PRN #10 tab 01/25/20 5-325] Cephalexin [Keflex] 500 mg PO BID #10 cap 03/31/22 Ibuprofen [Motrin] 600 mg PO Q8HR PRN #30 tab 03/31/22 Allergies Allergy/AdvReac Type Severity Reaction Status Date / Time No Known Allergies Allergy Verified 03/30/22 22:43 Review of Systems ROS Statement: Those systems with pertinent positive or pertinent negative responses have been documented in the HPI. ROS Other: All systems not noted in ROS Statement are negative. Past Medical History Past Medical History: No Reported History Additional Past Medical History / Comment(s): ovarian cysts, UTI. kidney infection, kidney stone History of Any Multi-Drug Resistant Organisms: None Reported Past Surgical History: Appendectomy, Bariatric Surgery, Section, Tubal Ligation Additional Past Surgical History / Comment(s): lap band, uterine ablation Past Psychological History: No Psychological Hx Reported Smoking Status: Never smoker Past Alcohol Use History: Occasional Past Drug Use History: None Reported General Exam Limitations: no limitations (Well-developed, well-nourished female in no acute distress.) General appearance: alert, in no apparent distress ENT exam: Present: normal oropharynx, mucous membranes moist Respiratory exam: Present: normal lung sounds bilaterally. Absent: respiratory distress, wheezes, rales, rhonchi, stridor Cardiovascular Exam: Present: regular rate, normal rhythm, normal heart sounds. Absent: systolic murmur, diastolic murmur, rubs, gallop, clicks GI/Abdominal exam: Present: soft, normal bowel sounds. Absent: distended, tenderness, guarding, rebound, rigid Back exam: Present: normal inspection, full ROM. Absent: CVA tenderness (R), CVA tenderness (L) Neurological exam: Present: alert, oriented X3, CN II-XII intact Psychiatric exam: Present: normal affect, normal mood Skin exam: Present: warm, dry, intact, normal color. Absent: rash Course Vital Signs 03/30/22 03/31/22 22:39 00:24 Temperature 98.6 F 98.9 F Pulse Rate 100 84 Respiratory 20 19 Rate Blood Pressure 142/91 122/84 O2 Sat by Pulse 99 99 Oximetry Medical Decision Making - Medical Decision Making 41-year-old female with no significant past medical history reports to the emergency department for evaluation of low back pain and urinary frequency. Upon exam, patient is well-appearing and in no acute distress. Vital signs are stable. Urinalysis shows large leukocyte esterase with 58 urine WBCs per hpf. Patient will be started on Keflex. First dose was given in the emergency department. She will be prescribed Motrin for discomfort. Follow up with PCP for recheck. Return parameters discussed in detail. Patient verbalizes understanding and agrees with this plan. Attending: Bubba. - Lab Data Lab Results 03/30/22 Range/Units 22:48 Urine Color Light Yellow Urine Appearance Cloudy H (Clear) Urine pH 8.0 (5.0-8.0) Ur Specific [place] 1.014 (1.001-1.035) Urine Protein Trace H (Negative) Urine Glucose (UA) Negative (Negative) Urine Ketones Negative (Negative) Urine Blood Negative (Negative) Urine Nitrite Negative (Negative) Urine Bilirubin Negative (Negative) Urine Urobilinogen 4.0 (<2.0) mg/dL Ur Leukocyte Esterase Large H (Negative) Urine RBC 3 (0-5) /hpf Urine WBC 58 H (0-5) /hpf Ur Squamous Epith Cells 6 H (0-4) /hpf Urine Bacteria Rare H (None) /hpf Urine Mucus Rare H (None) /hpf Disposition Clinical Impression: Urinary tract infection Disposition: HOME SELF-CARE Condition: Stable Instructions (If sedation given, give patient instructions): Urinary Tract Infection in Women (ED) Additional Instructions: Increase your intake of water. Empty your bladder frequently. Take antibiotic as directed. Motrin is prescribed for pain. Follow-up with your PCP for a recheck this week if needed. Return to the emergency department with any new, worsening, or concerning symptoms. Given [place] 5-325mg in ER. Prescriptions: Cephalexin [Keflex] 500 mg PO BID #10 cap Ibuprofen [Motrin] 600 mg PO Q8HR PRN #30 tab PRN Reason: Pain Is patient prescribed a controlled substance at d/c from ED?: No Referrals: None,Stated [Primary Care Provider] - 1-2 days Time of Disposition: 00:12
[2022-03-31 00:26] VITALS: BP 122/84; PULSE 84; RESP 19; TEMP 98.9
== END 2022-03-31 00:26 | disposition home or self-care (01) ==
LOC: EC 22:29
DX: N39.0 Urinary tract infection, site not specified (principal)
CPT/HCPCS: 81001; 87086; 99283